=== PATIENT | male | born 2000 | race Two or more races ===

== ENCOUNTER 2025-05-25 15:29 | Emergency (ER) | payer MEDICARE, OTHER ==
[~2025-05-25] VITALS: Ht 167.6 cm; Wt 69.0 kg
[2025-05-25 15:34] VITALS: BP 141/91; PULSE 107; RESP 18; TEMP 98.2; O2SAT 100
[2025-05-25] MEDS ORDERED: ACET-2247 PO (15:38)
[2025-05-25] MEDS ORDERED: ACET-66 PO ×2 (16:53→17:42)
[2025-05-25] MEDS ORDERED: IBUP-1554 PO (16:53)
[2025-05-25] MEDS: ACETAMINOPHEN 500 MG TABLET PO ONE (16:59)
[2025-05-25] MEDS: IBUPROFEN 600 MG TABLET PO ONE (16:59)
== END 2025-05-25 17:57 | disposition home or self-care (01) ==
LOC: EMS 15:29
DX: S63.502A Unspecified sprain of left wrist, initial encounter (principal); Z79.899 Other long term (current) drug therapy; W19.XXXA Unspecified fall, initial encounter; Y93.89 Activity, other specified; Y92.89 Other specified places as the place of occurrence of the external cause; Y99.8 Other external cause status
CPT/HCPCS: 99283